=== PATIENT | female | born 1990 | race Hispanic/Latino ===

== ENCOUNTER 2017-07-06 19:48 | Emergency (ER) | payer MEDICAID ==
--- NOTE | 2017-07-06 22:30 | Emergency Department Report ---
ED Recheck HPI - General Chief Complaint: Medical Clearance Stated Complaint: MEDICATION REFILL Time Seen by Provider: 07/06/17 22:04 Source: patient Mode of arrival: Ambulatory Limitations: No Limitations - History of Present Illness Initial Comments: This 26-year-old female nontoxic, well nourished in appearance, no acute signs of distress presents to the ED for refill of Celexa. Patient stated she currently has anxiety and depression and has not been taking her medications for the past 2 days. Patient denies any suicidal medication medication. Patient states she is asymptomatic and just wants medication refill. Patient states she takes Celexa 40 mg daily. He denies having a primary care doctor or psychiatrist or psychologist due to insurance purposes but stated at the end of next month she should get her insurance. Patient denies any chest pain, shortness of breath, fever, chills, nausea, vomiting, headache or stiff neck. Patient states allergies sulfa denies past medical history besides anxiety and depression. MD Complaint: medication refill request Returns Today for: request for prescription Symptoms Since Prior Visit: no new symptoms Associated Symptoms: none. denies: fever, chills, chest pain, shortness of breath, rash, malaise, nasuea, abdominal pain - Related Data Previous Rx's Medication Instructions Recorded Last Taken Type Citalopram [Celexa] 20 mg PO QDAY #10 tablet 09/18/15 04/26/16 21:00 Rx Amoxicillin [Trimox CAP] 500 mg PO Q8H #30 capsule 10/17/15 04/06/16 22:00 Rx Ibuprofen [Motrin 800 MG tab] 800 mg PO TID PRN #30 tablet 04/28/16 Unknown Rx Lidocain2.5%/Prilocai2.5% [Emla] 5 gm TP PRN #1 tube 04/28/16 Unknown Rx Citalopram Hydrobromide [Celexa] 40 mg PO DAILY #30 tablet 07/06/17 Unknown Rx Allergies Allergy/AdvReac Type Severity Reaction Status Date / Time Sulfa (Sulfonamide Allergy Intermediate Swelling Verified 10/17/15 11:36 Antibiotics) ED Review of Systems ROS: Stated complaint: MEDICATION REFILL Other details as noted in HPI Constitutional: denies: chills, fever Eyes: denies: eye pain, eye discharge, vision change ENT: denies: ear pain, throat pain Respiratory: denies: cough, shortness of breath, wheezing Cardiovascular: denies: chest pain, palpitations Endocrine: no symptoms reported Gastrointestinal: denies: abdominal pain, nausea, diarrhea Genitourinary: denies: urgency, dysuria, discharge Musculoskeletal: denies: back pain, joint swelling, arthralgia Skin: denies: rash, lesions Neurological: denies: headache, weakness, paresthesias Psychiatric: denies: anxiety, depression Hematological/Lymphatic: denies: easy bleeding, easy bruising ED Past Medical Hx - Past Medical History Hx Hypertension: Yes (PIH WITH 1ST ) Hx Congestive Heart Failure: No Hx Diabetes: No Hx Deep Vein Thrombosis: No Hx Renal Disease: No Hx Sickle Cell Disease: No Hx Seizures: No Hx Psychiatric Treatment: Yes (anxiety, depression) Hx Asthma: No Hx COPD: No Hx HIV: No - Surgical History Additional Surgical History: Gallbladder - Social History Smoking Status: Current Some Day Smoker Substance Use Type: None - Medications Home Medications: Home Medications Medication Instructions Recorded Confirmed Last Taken Type Citalopram [Celexa] 20 mg PO QDAY #10 tablet 09/18/15 04/27/16 04/26/16 21:00 Rx Amoxicillin [Trimox CAP] 500 mg PO Q8H #30 capsule 10/17/15 04/27/16 04/06/16 22 :00 Rx Ibuprofen [Motrin 800 MG tab] 800 mg PO TID PRN #30 tablet 04/28/16 Unknown Rx Lidocain2.5%/Prilocai2.5% [Emla] 5 gm TP PRN #1 tube 04/28/16 Unknown Rx Citalopram Hydrobromide [Celexa] 40 mg PO DAILY #30 tablet 07/06/17 Unknown Rx ED Physical Exam - General Limitations: No Limitations General appearance: alert, in no apparent distress - Head Head exam: Present: atraumatic, normocephalic - Eye Eye exam: Present: normal appearance - ENT ENT exam: Present: mucous membranes moist - Neck Neck exam: Present: normal inspection - Respiratory Respiratory exam: Present: normal lung sounds bilaterally. Absent: respiratory distress - Cardiovascular Cardiovascular Exam: Present: regular rate, normal rhythm. Absent: systolic murmur, diastolic murmur, rubs, gallop - GI/Abdominal GI/Abdominal exam: Present: soft, normal bowel sounds - Extremities Exam Extremities exam: Present: normal inspection - Back Exam Back exam: Present: normal inspection - Neurological Exam Neurological exam: Present: alert, oriented X3 - Psychiatric Psychiatric exam: Present: normal affect, normal mood - Skin Skin exam: Present: warm, dry, intact, normal color. Absent: rash ED Course Vital Signs 07/06/17 20:23 Temperature 99.0 F Pulse Rate 97 H Respiratory 18 Rate Blood Pressure 130/83 O2 Sat by Pulse 100 Oximetry - Reevaluation(s) Reevaluation #1: 07/06/17 22:28 Patient is speaking in full sentences with no signs of distress noted. Critical care attestation.: If time is entered above; I have spent that time in minutes in the direct care of this critically ill patient, excluding procedure time. ED Disposition Clinical Impression: Medication refill Disposition: DC-01 TO HOME OR SELFCARE Is pt being admited?: No Does the pt Need Aspirin: No Condition: Stable Instructions: Citalopram (By mouth) Additional Instructions: Follow-up with a primary care doctor in 3-5 days or if symptoms worsen and continue return to emergency room as soon as possible. Prescriptions: Citalopram Hydrobromide [Celexa] 40 mg PO DAILY #30 tablet Referrals: PRIMARY CAREMD [Primary Care Provider] - 3-5 Days ELIZABETH MACARIO MD [Staff Physician] - 3-5 Days [facility] [Outside] - 3-5 Days [facility] [place] [Outside] - 3-5 Days Forms: Work/School Release Form(ED)
[2017-07-06 22:57] VITALS: BP 132/85
== END 2017-07-06 22:57 | disposition home or self-care (01) ==
LOC: ED 19:48
DX: F41.9 Anxiety disorder, unspecified (principal); F32.9 Major depressive disorder, single episode, unspecified; I10 Essential (primary) hypertension; F17.200 Nicotine dependence, unspecified, uncomplicated
CPT/HCPCS: 99282

== ENCOUNTER 2017-08-28 20:47 | Emergency (ER) | payer MEDICAID ==
[2017-08-28 20:57] VITALS: BP 137/87
== END 2017-08-28 23:20 | disposition left against medical advice (07) ==
LOC: ED 20:47
DX: Z53.21 Procedure and treatment not carried out due to patient leaving prior to being seen by health care provider (principal)

== ENCOUNTER 2019-10-30 13:58 | Emergency (ER) | payer SELFPAY ==
[2019-10-30 14:56] VITALS: BP 136/79
--- NOTE | 2019-10-30 14:57 | Emergency Department Report ---
ED Recheck HPI - General Chief Complaint: High BP Stated Complaint: REFILLS ON RX Time Seen by Provider: 10/30/19 14:56 Source: patient Mode of arrival: Ambulatory Limitations: No Limitations - History of Present Illness Initial Comments: This is a 29-year-old female nontoxic, well in appearance with no signs of distress presents to the ED for medication refill of HTN. Due to COVID-19 patients MD is closed. Patient stated she is asymptotic. Patient denies any urinary symptoms. Patient denies any fever, chills, headache, nausea, vomiting, chest pain or shortness of breathe. denies any other symptoms or complaints. Allergies to Sulfa. MD Complaint: medication refill request -: days(s) Returns Today for: request for prescription Symptoms Since Prior Visit: no new symptoms Associated Symptoms: none. denies: fever, chills, chest pain, shortness of breath, rash, malaise, nasuea, abdominal pain - Related Data Previous Rx's Medication Instructions Recorded Last Taken Type Citalopram [Celexa] 20 mg PO QDAY #10 tablet 09/18/15 04/26/16 21:00 Rx Amoxicillin [Trimox CAP] 500 mg PO Q8H #30 capsule 10/17/15 04/06/16 22:00 Rx Ibuprofen [Motrin 800 MG tab] 800 mg PO TID PRN #30 tablet 04/28/16 Unknown Rx Lidocain2.5%/Prilocai2.5% [Emla] 5 gm TP PRN #1 tube 04/28/16 Unknown Rx Citalopram Hydrobromide [Celexa] 40 mg PO DAILY #30 tablet 07/06/17 Unknown Rx AtorvaSTATin [Lipitor] 20 mg PO QHS #30 tab 10/30/19 Unknown Rx hydroCHLOROthiazide [HCTZ] 25 mg PO QDAY #30 tablet 10/30/19 Unknown Rx Allergies Allergy/AdvReac Type Severity Reaction Status Date / Time Sulfa (Sulfonamide Allergy Intermediate Swelling Verified 10/17/15 11:36 Antibiotics) ED Review of Systems ROS: Stated complaint: REFILLS ON RX Other details as noted in HPI Constitutional: denies: chills, fever Eyes: denies: eye pain, eye discharge, vision change ENT: denies: ear pain, throat pain Respiratory: denies: cough, shortness of breath, wheezing Cardiovascular: denies: chest pain, palpitations Endocrine: no symptoms reported Gastrointestinal: denies: abdominal pain, nausea, diarrhea Genitourinary: denies: urgency, dysuria, discharge Musculoskeletal: denies: back pain, joint swelling, arthralgia Skin: denies: rash, lesions Neurological: denies: headache, weakness, paresthesias Psychiatric: denies: anxiety, depression Hematological/Lymphatic: denies: easy bleeding, easy bruising ED Past Medical Hx - Past Medical History Hx Hypertension: Yes (PIH WITH 1ST ) Hx Congestive Heart Failure: No Hx Diabetes: No Hx Deep Vein Thrombosis: No Hx Renal Disease: No Hx Sickle Cell Disease: No Hx Seizures: No Hx Psychiatric Treatment: Yes (anxiety, depression) Hx Asthma: No Hx COPD: No Hx HIV: No - Surgical History Additional Surgical History: Gallbladder - Social History Smoking Status: Never Smoker Substance Use Type: None - Medications Home Medications: Home Medications Medication Instructions Recorded Confirmed Last Taken Type Citalopram [Celexa] 20 mg PO QDAY #10 tablet 09/18/15 04/27/16 04/26/16 21:00 Rx Amoxicillin [Trimox CAP] 500 mg PO Q8H #30 capsule 10/17/15 04/27/16 04/06/16 22:00 Rx Ibuprofen [Motrin 800 MG tab] 800 mg PO TID PRN #30 tablet 04/28/16 Unknown Rx Lidocain2.5%/Prilocai2.5% [Emla] 5 gm TP PRN #1 tube 04/28/16 Unknown Rx Citalopram Hydrobromide [Celexa] 40 mg PO DAILY #30 tablet 07/06/17 Unknown Rx AtorvaSTATin [Lipitor] 20 mg PO QHS #30 tab 10/30/19 Unknown Rx hydroCHLOROthiazide [HCTZ] 25 mg PO QDAY #30 tablet 10/30/19 Unknown Rx ED Physical Exam - General Limitations: No Limitations General appearance: alert, in no apparent distress - Head Head exam: Present: atraumatic, normocephalic - Eye Eye exam: Present: normal appearance - Neck Neck exam: Present: normal inspection, full ROM. Absent: tenderness, meningismus, lymphadenopathy - Respiratory Respiratory exam: Present: normal lung sounds bilaterally. Absent: respiratory distress, wheezes, rales, rhonchi, stridor, chest wall tenderness, accessory muscle use, decreased breath sounds, prolonged expiratory - Cardiovascular Cardiovascular Exam: Present: regular rate, normal rhythm, normal heart sounds. Absent: bradycardia, tachycardia, irregular rhythm - Extremities Exam Extremities exam: Present: normal inspection, full ROM - Back Exam Back exam: Present: normal inspection, full ROM - Neurological Exam Neurological exam: Present: alert, oriented X3, normal gait - Psychiatric Psychiatric exam: Present: normal affect, normal mood - Skin Skin exam: Present: warm, dry, intact, normal color. Absent: rash ED Course Vital Signs 10/30/19 14:54 Temperature 98.3 F Pulse Rate 82 Respiratory 18 Rate Blood Pressure 136/79 O2 Sat by Pulse 100 Oximetry - Reevaluation(s) Reevaluation #1: 10/30/19 14:59 Patient is speaking in full sentences with no signs of distress noted. ED Recheck MDM - Medical Decision Making Patient was instructed to Follow-up with a primary care doctor in 3-5 days or if symptoms worsen and continue return to emergency room as soon as possible. At time of discharge, the patient does not seem toxic or ill in appearance. No acute signs of distress noted. Patient agrees to discharge treatment plan of care. No further questions noted by the patient. Critical care attestation.: If time is entered above; I have spent that time in minutes in the direct care of this critically ill patient, excluding procedure time. ED Disposition Clinical Impression: Medication refill Disposition: MED SCREENING EXAM-LEFT Is pt being admited?: No Does the pt Need Aspirin: No Condition: Stable Additional Instructions: Follow-up with a primary care doctor in 3-5 days or if symptoms worsen and continue return to emergency room as soon as possible. Prescriptions: AtorvaSTATin [Lipitor] 20 mg PO QHS #30 tab hydroCHLOROthiazide [HCTZ] 25 mg PO QDAY #30 tablet Referrals: PRIMARY CAREMD [Referring] - 3-5 Days ABA JOHNSON MD [Staff Physician] - 3-5 Days [facility] [Provider Group] - 3-5 Days Forms: Work/School Release Form(ED)
== END 2019-10-30 15:25 | disposition left against medical advice (07) ==
LOC: ED 13:58
DX: I10 Essential (primary) hypertension (principal); F32.9 Major depressive disorder, single episode, unspecified; Z76.0 Encounter for issue of repeat prescription; Z98.890 Other specified postprocedural states; Z79.899 Other long term (current) drug therapy; Z88.2 Allergy status to sulfonamides
CPT/HCPCS: 99281

== ENCOUNTER 2020-06-18 19:21 | Emergency (ER) | payer SELFPAY ==
[2020-06-18 20:17] VITALS: BP 118/78
--- NOTE | 2020-06-18 20:55 | XRay Report ---
LEFT HAND 3 VIEWS INDICATION / CLINICAL INFORMATION: Left thumb swelling and pain. COMPARISON: None available. FINDINGS: There is a mildly displaced intra-articular fracture of the dorsal base of the thumb distal phalanx. There is no other acute fracture. Remaining alignment is normal. Signer Name: Daniel Brooks MD Signed: 06/18/2020 8:51 PM Workstation Name: [id number]
[2020-06-18] MEDS ORDERED: HYDROcodone/ACETAMINOPHEN 5-325 MG TAB PO ONE (23:47)
--- NOTE | 2020-06-19 00:28 | Emergency Department Report ---
Upper Extremity - HPI Chief Complaint: Extremity Injury, Upper Stated Complaint: LEFT HAND PAIN Time Seen by Provider: 06/18/20 23:43 Upper Extremity: Left Thumb (Left dorsal distal thumb swelling ) Occurred When: 2 Days Mechanism: Crush Severity: moderate Symptoms: Yes Pain with Movement, Yes Swelling, Yes Bruising/Ecchymosis, No Deformity, No Limited Range of Movement, No Numbness, No Weakness, No Laceration or Abrasion Other History: Patient states she slammed her left distal thigh in car door yesterday, and noted pain and swelling this a.m. when she woke up. Pain progressed through the day while at work so she came to ED for abdominal evaluation. Patient complains of 5/10 distal thumb pain, pain is exacerbated by movement and palpation. Pain is relieved by nothing tried. ED Review of Systems ROS: Stated complaint: LEFT HAND PAIN Other details as noted in HPI Constitutional: denies: chills, fever Eyes: denies: eye pain, eye discharge, vision change ENT: denies: ear pain, throat pain Respiratory: denies: cough, shortness of breath, wheezing Cardiovascular: as per HPI Endocrine: no symptoms reported Gastrointestinal: denies: abdominal pain, nausea, diarrhea Genitourinary: denies: urgency, dysuria, discharge Musculoskeletal: denies: back pain, arthralgia Skin: denies: rash, lesions Neurological: denies: headache, weakness, paresthesias Psychiatric: denies: anxiety, depression Hematological/Lymphatic: denies: easy bleeding, easy bruising ED Past Medical Hx - Past Medical History Previous Medical History?: Yes Hx Hypertension: Yes (PIH WITH 1ST ) Hx Congestive Heart Failure: No Hx Diabetes: No Hx Deep Vein Thrombosis: No Hx Renal Disease: No Hx Sickle Cell Disease: No Hx Seizures: No Hx Psychiatric Treatment: Yes (anxiety, depression) Hx Asthma: No Hx COPD: No Hx HIV: No Additional medical history: high cholesterol - Surgical History Past Surgical History?: Yes Hx Cholecystectomy: Yes Additional Surgical History: Gallbladder - Social History Smoking Status: Never Smoker Substance Use Type: None - Medications Home Medications: Home Medications Medication Instructions Recorded Confirmed Last Taken Type Citalopram [Celexa] 20 mg PO QDAY #10 tablet 09/18/15 04/27/16 04/26/16 21:00 Rx Amoxicillin [Trimox CAP] 500 mg PO Q8H #30 capsule 10/17/15 04/27/16 04/06/16 22:00 Rx Ibuprofen [Motrin 800 MG tab] 800 mg PO TID PRN #30 tablet 04/28/16 Unknown Rx Lidocain2.5%/Prilocai2.5% [Emla] 5 gm TP PRN #1 tube 04/28/16 Unknown Rx Citalopram Hydrobromide [Celexa] 40 mg PO DAILY #30 tablet 07/06/17 Unknown Rx AtorvaSTATin [Lipitor] 20 mg PO QHS #30 tab 12/07/19 Unknown Rx Dicyclomine [Bentyl] 20 mg PO Q6H PRN #30 tablet 12/07/19 Unknown Rx Famotidine [Pepcid] 20 mg PO Q12H #60 tablet 12/07/19 Unknown Rx Omeprazole 40 mg PO DAILY #30 capsule.dr 12/07/19 Unknown Rx hydroCHLOROthiazide [HCTZ] 25 mg PO QDAY #30 tablet 12/07/19 Unknown Rx Ibuprofen [Motrin] 800 mg PO Q8HR PRN #24 tablet 02/08/20 Unknown Rx cephALEXin [Keflex] 500 mg PO Q8HR #30 cap 02/08/20 Unknown Rx HYDROcodone/APAP 5-325 [[place] 1 each PO Q6HR PRN #12 tablet 06/19/20 Unknown Rx 5-325 mg TAB] Upper Extremity Exam - Exam General: Vital signs noted. No distress. Alert and acting appropriately. Head and Torso: No HEENT Abnormality, No Neck Tenderness, No Chest/Lungs Abnormality, No Abdominal Tenderness, No Back Tenderness Shoulder Exam: Yes Normal Range of Motion in Shoulder, No Shoulder Tenderness, No Clavicle Tenderness, No Shoulder Deformity, No AC Joint Tenderness Arm Exam: No Arm/Humerus Tenderness, No Arm Deformity Elbow: Yes Normal Range of Motion in Elbow, No Elbow Tenderness, No Elbow Deformity Forearm: No Forearm Tenderness, No Forearm Deformity, No Pain with Pronation, No Pain with Supination Wrist: Yes Normal ROM in Wrist, Yes Pain with Axial Thumb Compression (distal phalynx pain ), No Wrist Tenderness, No Wrist Deformity, No Snuffbox Tenderness Hand: Yes Hand Tenderness, Yes Normal ROM in Digit(s), No Hand Deformity, No Digit Tenderness, No Digit(s) Deformity, No Tendon Dysfunction CMS Exam: Yes Normal Distal Pulses, Yes Normal Capillary Refill, Yes Normal Distal Sensation, No Broken Skin ED Course Vital Signs 06/18/20 20:15 Temperature 98.3 F Pulse Rate 69 Respiratory 18 Rate Blood Pressure 118/78 O2 Sat by Pulse 98 Oximetry - Reevaluation(s) Reevaluation #1: distal pulse +2 bilat , there is no open wound, no deformity , rom intact, distal phalynx tenderness and mild swelling , no gross deformly, velcro thumb spica is that. 06/19/20 00:28 ED Medical Decision Making - Radiology Data Radiology results: report reviewed, image reviewed This is a closed distal phalanx fracture left - Medical Decision Making This is a closed distal phalanx fracture left, Velcro thumb spica intact spacing is appropriate. Plan patient will be DC'd home to family with prescriptions. Patient will follow-up with Ortho in 2 to 3 days. Patient verbalizes agreement and understanding of discharge plan patient DC'd home in stable condition at this time Critical care attestation.: If time is entered above; I have spent that time in minutes in the direct care of this critically ill patient, excluding procedure time. ED Disposition Clinical Impression: Fracture of distal phalanx of thumb Qualifiers: Encounter type: initial encounter Fracture type: open Fracture alignment: nondisplaced Laterality: left Qualified Code(s): S62.525B - Nondisplaced fracture of distal phalanx of left thumb, initial encounter for open fracture Disposition: DC-01 TO HOME OR SELFCARE Is pt being admited?: No Does the pt Need Aspirin: No Condition: Stable Instructions: Cast or Splint Care, Adult, [id number], Thumb Fracture Prescriptions: HYDROcodone/APAP 5-325 [[place] 5-325 mg TAB] 1 each PO Q6HR PRN #12 tablet PRN Reason: Pain Referrals: CHRISTINA PADILLA MD [Staff Physician] - 3-5 Days Forms: Work/School Release Form(ED) Time of Disposition: 00:42
== END 2020-06-19 00:50 | disposition home or self-care (01) ==
LOC: ED 19:21
DX: S62.525B Nondisplaced fracture of distal phalanx of left thumb, initial encounter for open fracture (principal); I10 Essential (primary) hypertension; F41.9 Anxiety disorder, unspecified; F32.89 Other specified depressive episodes; E78.00 Pure hypercholesterolemia, unspecified; X58.XXXA Exposure to other specified factors, initial encounter; Y93.89 Activity, other specified; Y92.89 Other specified places as the place of occurrence of the external cause; Y99.8 Other external cause status

== ENCOUNTER 2020-09-02 00:14 | Emergency (ER) | payer SELFPAY ==
[2020-09-02 01:57] LABS: Basophils # (Auto) 0.1 K/mm3 (0.0-0.1); Basophils % (Auto) 0.6 % (0.0-1.8); Eosinophils # (Auto) 0.2 K/mm3 (0.0-0.4); Eosinophils % (Auto) 1.7 % (0.0-4.3); Hematocrit 40.3 % (30.3-42.9); Hemoglobin 13.3 gm/dl (10.1-14.3); Lymphocytes # (Auto) 1.8 K/mm3 (1.2-5.4); Lymphocytes % (Auto) 16.1 % (13.4-35.0); Mean Corpuscular HGB Conc 33 % (30-34); Mean Corpuscular Volume 95 fl (79-97); Monocytes # (Auto) 0.9 K/mm3 (0.0-0.8); Monocytes % (Auto) 7.8 % (0.0-7.3); Platelet Count 263 K/mm3 (140-440); Red Blood Count 4.25 M/mm3 (3.65-5.03); Red Cell Distribution Width 12.9 % (13.2-15.2)
[2020-09-02 02:17] LABS: Alanine Aminotransferase 18 units/L (7-56); Albumin 3.7 g/dL (3.9-5); Blood Urea Nitrogen 9 mg/dL (7-17); Calcium 9.1 mg/dL (8.4-10.2); Hemolysis Index 7
[2020-09-02 02:25] LABS: BUN/Creatinine Ratio 13
--- NOTE | 2020-09-02 04:11 | XRay Report ---
CHEST 1 VIEW 09/02/2020 2:57 AM INDICATION / CLINICAL INFORMATION: SOB. COMPARISON: None available. FINDINGS: SUPPORT DEVICES: None. HEART / MEDIASTINUM: No significant abnormality. LUNGS / PLEURA: No significant pulmonary or pleural abnormality. No pneumothorax. ADDITIONAL FINDINGS: No significant additional findings. IMPRESSION: 1. No acute findings. Signer Name: Devin Andrade MD Signed: 09/02/2020 4:06 AM Workstation Name: [id number]
[2020-09-02 04:54] LABS: Bacteria,Urine 1+ /HPF (Negative); Bilirubin,Urine NEG (Negative); Blood,Urine NEG (Negative); Color,Urine Yellow (Yellow); Mucus,Urine FEW /HPF; Protein,Urine <15 mg/dL mg/dL (Negative); Urobilinogen,Urine < 2.0 mg/dL (<2.0)
--- NOTE | 2020-09-02 05:24 | Emergency Department Report ---
ED Chest Pain HPI - General Chief Complaint: Chest Pain Stated Complaint: CHEST PAIN,VALDEMAR,SWELLING Time Seen by Provider: 09/02/20 03:19 Source: patient Mode of arrival: Ambulatory Limitations: No Limitations - History of Present Illness Initial Comments: This is a 30-year-old female presents to the emergency department with complaint of feeling like she is swollen from the abdomen up through her head, and the patient says that she has some chest tightness/pressure over the past few days. She denies any fever, back pain, abdominal pain, lower extremity swelling, headache, vision change. The patient is about 7 weeks and with this she is G5, P4. She has a past medical history of hypertension for which she was previously on lisinopril and HCTZ. She just followed up with her INTERVENTIONAL SALE CONSULTANT at [facility] and was switched off of those blood pressure medications and onto labetalol 100 mg twice daily. She says that she has the previously mentioned symptoms since making the change in the blood pressure medications. On top of the hypertension, the patient also has a history of high cholesterol. She denies any tobacco or illicit drug use. There is no family history of early heart attack within her nuclear family. No recent travel or sick contacts at home. No known exposure to anyone with COVID-19. She has not taken anything for her symptoms prior to presentation today. - Related Data Previous Rx's Medication Instructions Recorded Last Taken Type Citalopram [Celexa] 20 mg PO QDAY #10 tablet 09/18/15 04/26/16 21:00 Rx Amoxicillin [Trimox CAP] 500 mg PO Q8H #30 capsule 10/17/15 04/06/16 22:00 Rx Ibuprofen [Motrin 800 MG tab] 800 mg PO TID PRN #30 tablet 04/28/16 Unknown Rx Lidocain2.5%/Prilocai2.5% [Emla] 5 gm TP PRN #1 tube 04/28/16 Unknown Rx Citalopram Hydrobromide [Celexa] 40 mg PO DAILY #30 tablet 07/06/17 Unknown Rx AtorvaSTATin [Lipitor] 20 mg PO QHS #30 tab 12/07/19 Unknown Rx Dicyclomine [Bentyl] 20 mg PO Q6H PRN #30 tablet 12/07/19 Unknown Rx Famotidine [Pepcid] 20 mg PO Q12H #60 tablet 12/07/19 Unknown Rx Omeprazole 40 mg PO DAILY #30 capsule. 12/07/19 Unknown Rx hydroCHLOROthiazide [HCTZ] 25 mg PO QDAY #30 tablet 12/07/19 Unknown Rx Ibuprofen [Motrin] 800 mg PO Q8HR PRN #24 tablet 02/08/20 Unknown Rx cephALEXin [Keflex] 500 mg PO Q8HR #30 cap 02/08/20 Unknown Rx HYDROcodone/APAP 5-325 [[place] 1 each PO Q6HR PRN #12 tablet 06/19/20 Unknown Rx 5-325 mg TAB] Allergies Allergy/AdvReac Type Severity Reaction Status Date / Time Sulfa (Sulfonamide Allergy Intermediate Swelling Verified 10/17/15 11:36 Antibiotics) Heart Score - HEART Score History: Slightly suspicious EKG: Normal Age: < 45 Risk factors: 1-2 risk factors Troponin: < normal limit HEART Score: 1 - Critical Actions Critical Actions: 0-3 pts:0.9-1.7%risk of adverse cardiac event.Candidate for discharge ED Review of Systems ROS: Stated complaint: CHEST PAIN,VALDEMAR,SWELLING Other details as noted in HPI Comment: All other systems reviewed and negative Constitutional: denies: chills, fever Eyes: denies: eye pain, vision change ENT: denies: ear pain, throat pain Respiratory: denies: cough, wheezing Cardiovascular: chest pain, edema Gastrointestinal: denies: abdominal pain, vomiting Genitourinary: denies: dysuria, discharge Musculoskeletal: denies: back pain, arthralgia Skin: denies: rash, lesions Neurological: denies: headache, weakness ED Past Medical Hx - Past Medical History Hx Hypertension: Yes (PIH WITH 1ST ) Hx Congestive Heart Failure: No Hx Diabetes: No Hx Deep Vein Thrombosis: No Hx Renal Disease: No Hx Sickle Cell Disease: No Hx Seizures: No Hx Psychiatric Treatment: Yes (anxiety, depression) Hx Asthma: No Hx COPD: No Hx HIV: No Additional medical history: high cholesterol - Surgical History Past Surgical History?: Yes Hx Cholecystectomy: Yes Additional Surgical History: Gallbladder - Social History Smoking Status: Never Smoker Substance Use Type: None - Medications Home Medications: Home Medications Medication Instructions Recorded Confirmed Last Taken Type Citalopram [Celexa] 20 mg PO QDAY #10 tablet 09/18/15 04/27/16 04/26/16 21:00 Rx Amoxicillin [Trimox CAP] 500 mg PO Q8H #30 capsule 10/17/15 04/27/16 04/06/16 22:00 Rx Ibuprofen [Motrin 800 MG tab] 800 mg PO TID PRN #30 tablet 04/28/16 Unknown Rx Lidocain2.5%/Prilocai2.5% [Emla] 5 gm TP PRN #1 tube 04/28/16 Unknown Rx Citalopram Hydrobromide [Celexa] 40 mg PO DAILY #30 tablet 07/06/17 Unknown Rx AtorvaSTATin [Lipitor] 20 mg PO QHS #30 tab 12/07/19 Unknown Rx Dicyclomine [Bentyl] 20 mg PO Q6H PRN #30 tablet 12/07/19 Unknown Rx Famotidine [Pepcid] 20 mg PO Q12H #60 tablet 12/07/19 Unknown Rx Omeprazole 40 mg PO DAILY #30 capsule. 12/07/19 Unknown Rx hydroCHLOROthiazide [HCTZ] 25 mg PO QDAY #30 tablet 12/07/19 Unknown Rx Ibuprofen [Motrin] 800 mg PO Q8HR PRN #24 tablet 02/08/20 Unknown Rx cephALEXin [Keflex] 500 mg PO Q8HR #30 cap 02/08/20 Unknown Rx HYDROcodone/APAP 5-325 [[place] 1 each PO Q6HR PRN #12 tablet 06/19/20 Unknown Rx 5-325 mg TAB] ED Physical Exam - General Limitations: No Limitations - Other Other exam information: GENERAL: The patient is well-developed well-nourished. HENT: Normocephalic. Atraumatic. Patient has moist mucous membranes. EYES: Extraocular motions are intact. NECK: Supple. Trachea is midline. CHEST/LUNGS: Clear to auscultation. There is no respiratory distress noted. HEART/CARDIOVASCULAR: Regular. There is no tachycardia. There is no murmur. ABDOMEN: Abdomen is soft, nontender. Patient has normal bowel sounds. There is no abdominal distention. SKIN: Skin is warm and dry. No appreciable edema. NEURO: The patient is awake, alert, and oriented. The patient is cooperative. The patient has no focal neurologic deficits. Normal speech. MUSCULOSKELETAL: There is no tenderness or deformity. There is no limitation range of motion. ED Course Vital Signs 09/02/20 09/02/20 09/02/20 01:10 03:15 03:30 Temperature 97.6 F Pulse Rate 68 65 64 Respiratory 16 19 18 Rate Blood Pressure 134/77 116/72 119/62 O2 Sat by Pulse 100 99 99 Oximetry 09/02/20 09/02/20 09/02/20 03:45 04:00 04:15 Temperature Pulse Rate 59 L 61 65 Respiratory 20 12 19 Rate Blood Pressure 127/69 116/65 132/71 O2 Sat by Pulse 99 100 100 Oximetry 09/02/20 09/02/20 09/02/20 04:31 05:00 05:15 Temperature Pulse Rate 63 64 67 Respiratory 16 16 20 Rate Blood Pressure 126/69 127/79 121/70 O2 Sat by Pulse 99 100 100 Oximetry 09/02/20 05:30 Temperature Pulse Rate 68 Respiratory 14 Rate Blood Pressure 124/80 O2 Sat by Pulse 100 Oximetry SANJAY score - Sanjay Score Age > 65: (0) No Aspirin use within the Past 7 Days: (0) No 3 or more CAD Risk Factors: (0) No 2 or more Angina events in past 24 hrs: (1) Yes Known CAD with more than 50% Stenosis: (0) No Elevated Cardiac Markers: (0) No ST Deviation Greater than 0.5mm: (0) No SANJAY Score: 1 ED Medical Decision Making - Lab Data Result diagrams: 09/02/20 01:30 09/02/20 01:30 Lab Results 09/02/20 09/02/20 09/02/20 Range/Units 01:30 01:30 04:18 WBC 11.3 H (4.5-11.0) K/mm3 RBC 4.25 (3.65-5.03) M/mm3 Hgb 13.3 (10.1-14.3) gm/dl Hct 40.3 (30.3-42.9) % MCV 95 (79-97) fl MCH 31 (28-32) pg MCHC 33 (30-34) % RDW 12.9 L (13.2-15.2) % Plt Count 263 (140-440) K/mm3 Lymph % (Auto) 16.1 (13.4-35.0) % [place] % (Auto) 7.8 H (0.0-7.3) % Eos % (Auto) 1.7 (0.0-4.3) % Baso % (Auto) 0.6 (0.0-1.8) % Lymph # (Auto) 1.8 (1.2-5.4) K/mm3 [place] # (Auto) 0.9 H (0.0-0.8) K/mm3 Eos # (Auto) 0.2 (0.0-0.4) K/mm3 Baso # (Auto) 0.1 (0.0-0.1) K/mm3 Seg Neutrophils % 73.8 H (40.0-70.0) % Seg Neutrophils # 8.3 H (1.8-7.7) K/mm3 Sodium 136 L (137-145) mmol/L Potassium 4.0 (3.6-5.0) mmol/L Chloride 103.8 (98-107) mmol/L Carbon Dioxide 24 (22-30) mmol/L Anion Gap 12 mmol/L BUN 9 (7-17) mg/dL Creatinine 0.7 (0.6-1.2) mg/dL Estimated GFR > 60 ml/min BUN/Creatinine Ratio 13 % Glucose 98 (65-100) mg/dL Calcium 9.1 (8.4-10.2) mg/dL Total Bilirubin 0.20 (0.1-1.2) mg/dL AST 15 (5-40) units/L ALT 18 (7-56) units/L Alkaline Phosphatase 59 (35-129) units/L Troponin T < 0.010 (0.00-0.029) ng/mL Total Protein 6.5 (6.3-8.2) g/dL Albumin 3.7 L (3.9-5) g/dL Albumin/Globulin Ratio 1.3 % Urine Color (Yellow) Urine Turbidity (Clear) Urine pH (5.0-7.0) Ur Specific [place] (1.003-1.030) Urine Protein (Negative) mg/dL Urine Glucose (UA) (Negative) mg/dL Urine Ketones (Negative) mg/dL Urine Blood (Negative) Urine Nitrite (Negative) Urine Bilirubin (Negative) Urine Urobilinogen (<2.0) mg/dL Ur Leukocyte Esterase (Negative) Urine WBC (Auto) (0.0-6.0) /HPF Urine RBC (Auto) (0.0-6.0) /HPF U Epithel Cells (Auto) (0-13.0) /HPF Urine Bacteria (Auto) (Negative) /HPF Urine Mucus /HPF 09/02/20 Range/Units 04:35 WBC (4.5-11.0) K/mm3 RBC (3.65-5.03) M/mm3 Hgb (10.1-14.3) gm/dl Hct (30.3-42.9) % MCV (79-97) fl MCH (28-32) pg MCHC (30-34) % RDW (13.2-15.2) % Plt Count (140-440) K/mm3 Lymph % (Auto) (13.4-35.0) % [place] % (Auto) (0.0-7.3) % Eos % (Auto) (0.0-4.3) % Baso % (Auto) (0.0-1.8) % Lymph # (Auto) (1.2-5.4) K/mm3 [place] # (Auto) (0.0-0.8) K/mm3 Eos # (Auto) (0.0-0.4) K/mm3 Baso # (Auto) (0.0-0.1) K/mm3 Seg Neutrophils % (40.0-70.0) % Seg Neutrophils # (1.8-7.7) K/mm3 Sodium (137-145) mmol/L Potassium (3.6-5.0) mmol/L Chloride (98-107) mmol/L Carbon Dioxide (22-30) mmol/L Anion Gap mmol/L BUN (7-17) mg/dL Creatinine (0.6-1.2) mg/dL Estimated GFR ml/min BUN/Creatinine Ratio % Glucose (65-100) mg/dL Calcium (8.4-10.2) mg/dL Total Bilirubin (0.1-1.2) mg/dL AST (5-40) units/L ALT (7-56) units/L Alkaline Phosphatase (35-129) units/L Troponin T (0.00-0.029) ng/mL Total Protein (6.3-8.2) g/dL Albumin (3.9-5) g/dL Albumin/Globulin Ratio % Urine Color Yellow (Yellow) Urine Turbidity Clear (Clear) Urine pH 5.0 (5.0-7.0) Ur Specific [place] 1.026 (1.003-1.030) Urine Protein <15 mg/dl (Negative) mg/dL Urine Glucose (UA) Neg (Negative) mg/dL Urine Ketones Neg (Negative) mg/dL Urine Blood Neg (Negative) Urine Nitrite Neg (Negative) Urine Bilirubin Neg (Negative) Urine Urobilinogen < 2.0 (<2.0) mg/dL Ur Leukocyte Esterase Neg (Negative) Urine WBC (Auto) 1.0 (0.0-6.0) /HPF Urine RBC (Auto) 2.0 (0.0-6.0) /HPF U Epithel Cells (Auto) 4.0 (0-13.0) /HPF Urine Bacteria (Auto) 1+ (Negative) /HPF Urine Mucus Few /HPF - EKG Data -: EKG Interpreted by Me EKG shows normal: sinus rhythm, axis, intervals, QRS complexes, ST-T waves Rate: normal - EKG Data When compared to previous EKG there are: previous EKG unavailable - Radiology Data Radiology results: image reviewed interpreted by me: Chest x-ray does not show any acute process. There are no pleural effusions, obvious pneumonia and there is no pneumothorax. No significant cardiomegaly. - Medical Decision Making This patient presents to the emergency department with the complaints of feeling some chest tightness/pressure, some intermittent shortness of breath, and f eeling like she is swollen and/or retaining fluid. The patient says that this began after she switched blood pressure medications due to her recent . She went from taking lisinopril and HCTZ to taking labetalol. This could be accurate as the patient has switched from the HCTZ which has a diuretic effect, to a beta-arian. However, on examination the patient does not have any appreciable edema. Heart and lung sounds are normal to auscultation. An EKG was done that does not show any morphology consistent with ST elevation myocardial infarction or any dysrhythmia. A chest x-ray was done with her abdomen shielded. Chest x-ray does not show any pneumonia, pleural effusions, pneumothorax, or any other acute process. Patient's labs have been unremarkable including CBC, metabolic panel and a negative troponin. The patient's vital signs have been reassuring throughout her ED course including being afebrile. There is no current hypertension. The patient's labs do not appear consistent with preeclampsia or help syndrome. She has denied any abdominal pain, vaginal bleeding, or any reason to evaluate the and has good outpatient follow-up with [facility]SULT[facility]. She appears safe for discharge home at this time. Her contact information has been sent over to the [facility] and [facility] [place], and someone from their office should be contacting her shortly for close outpatient follow-up as per our [facility] low risk chest pain protocol. Critical Care Time: No Critical care attestation.: If time is entered above; I have spent that time in minutes in the direct care of this critically ill patient, excluding procedure time. ED Disposition Clinical Impression: Chest tightness, Shortness of breath Disposition: TO HOME OR SELFCARE Is pt being admited?: No Condition: Stable Instructions: Nonspecific Chest Pain, Adult, Shortness of Breath, Adult Additional Instructions: Please follow-up with your INTERVENTIONAL SALE CONSULTANT. I am sending your contact information over to the [facility] [place], and someone from their office should be contacting you shortly for close outpatient follow-up. Just in case, I am giving you a referral for one of their looseleaf binder coverer, Dr. Payne. Return to the emergency department with any worsening of your symptoms, new or concerning symptoms not addressed during this current emergency department visi t, or with any acute distress. Referrals: PRIMARY MD MEHREEN [Primary Care Provider] - 2-3 Days MARINA PAYNE MD [Staff Physician] - 2-3 Days [facility] [Provider Group] - 3-5 Days Forms: Work/School Release Form(ED) Time of Disposition: 05:24
[2020-09-02 05:34] VITALS: BP 124/80
== END 2020-09-02 05:45 | disposition home or self-care (01) ==
LOC: ED 00:14
DX: R07.89 Other chest pain (principal); R06.02 Shortness of breath; I10 Essential (primary) hypertension; F41.9 Anxiety disorder, unspecified; F32.9 Major depressive disorder, single episode, unspecified; E78.00 Pure hypercholesterolemia, unspecified; Z90.49 Acquired absence of other specified parts of digestive tract; Z79.899 Other long term (current) drug therapy; Z88.2 Allergy status to sulfonamides; Z98.890 Other specified postprocedural states
CPT/HCPCS: 36415; 71045; 80053; 81001; 84484; 85025; 93005

== ENCOUNTER 2020-11-09 18:42 | Emergency (ER) | payer SELFPAY ==
[2020-11-09 19:38] VITALS: BP 139/72
--- NOTE | 2020-11-09 19:48 | Event Note ---
ED Screening Note Date of service: 11/09/20 Time: 19:45 ED Screening Note: Pt presents wth c/o painful swollen area vaginal area She reports mild itching. She denies vag d/c; she states she thinks it may be a yeast infection She also thinks she may be 20 weeks . Her last MC was 07/01/20 She had an US with my OBGYN at 7 weeks but she states her medical insurance got terminated and she hasnt been able to f/u since She denies vag bleeding or abd cramping. She is AB0 This initial assessment/diagnostic orders/clinical plan/treatment(s) is/are subject to change based on patients health status, clinical progression and re- assessment by fellow clinical providers in the ED. Further treatment and workup at subsequent clinical providers discretion. Patient/guardian urged not to elope from the ED as their condition may be serious if not clinically assessed and managed. Initial orders include: Pelvic exam FHT UA
[2020-11-09 21:02] LABS: Bilirubin,Urine NEG (Negative); Blood,Urine NEG (Negative); Color,Urine Yellow (Yellow); Mucus,Urine 2+ /HPF
--- NOTE | 2020-11-09 22:28 | Emergency Department Report ---
ED Female HPI - General Chief complaint: Urogenital-Female Stated complaint: YEAST INFECTION Time Seen by Provider: 11/09/20 22:22 Source: patient Mode of arrival: Ambulatory Limitations: No Limitations - History of Present Illness Initial comments: Pt presents wth c/o painful swollen area vaginal area She reports mild itching. She denies vag d/c; she states she thinks it may be a yeast infection She also thinks she may be 20 weeks . Her LKMP was 07/01/20 She had an US with my OBGYN at 7 weeks but she states her medical insurance got terminated and she hasnt been able to f/u since She denies vag bleeding or abd cramping. She is AB0 Onset/Timin -: days(s) Location: labia Severity scale (0 -10): 4 Quality: other Consistency: constant (Irritation) Improves with: none Are you Now?: Yes Last Menstrual Period: 07/01/20 EDC: 04/07/21 - Related Data Previous Rx's Medication Instructions Recorded Last Taken Type Citalopram [Celexa] 20 mg PO QDAY #10 tablet 09/18/15 04/26/16 21:00 Rx Amoxicillin [Trimox CAP] 500 mg PO Q8H #30 capsule 10/17/15 04/06/16 22:00 Rx Ibuprofen [Motrin 800 MG tab] 800 mg PO TID PRN #30 tablet 04/28/16 Unknown Rx Lidocain2.5%/Prilocai2.5% [Emla] 5 gm TP PRN #1 tube 04/28/16 Unknown Rx Citalopram Hydrobromide [Celexa] 40 mg PO DAILY #30 tablet 07/06/17 Unknown Rx AtorvaSTATin [Lipitor] 20 mg PO QHS #30 tab 12/07/19 Unknown Rx Dicyclomine [Bentyl] 20 mg PO Q6H PRN #30 tablet 12/07/19 Unknown Rx Famotidine [Pepcid] 20 mg PO Q12H #60 tablet 12/07/19 Unknown Rx Omeprazole 40 mg PO DAILY #30 capsule. 12/07/19 Unknown Rx hydroCHLOROthiazide [HCTZ] 25 mg PO QDAY #30 tablet 12/07/19 Unknown Rx Ibuprofen [Motrin] 800 mg PO Q8HR PRN #24 tablet 02/08/20 Unknown Rx cephALEXin [Keflex] 500 mg PO Q8HR #30 cap 02/08/20 Unknown Rx HYDROcodone/APAP 5-325 [[place] 1 each PO Q6HR PRN #12 tablet 06/19/20 Unknown Rx 5-325 mg TAB] Nystatin Cream [Mycostatin Cream] 1 applic TP TID #1 tube 11/09/20 Unknown Rx Allergies Allergy/AdvReac Type Severity Reaction Status Date / Time Sulfa (Sulfonamide Allergy Intermediate Swelling Verified 10/17/15 11:36 Antibiotics) ED Review of Systems ROS: Stated complaint: YEAST INFECTION Other details as noted in HPI Comment: All other systems reviewed and negative ED Past Medical Hx - Past Medical History Previous Medical History?: Yes Hx Hypertension: Yes (PIH WITH 1ST ) Hx Congestive Heart Failure: No Hx Diabetes: No Hx Deep Vein Thrombosis: No Hx Renal Disease: No Hx Sickle Cell Disease: No Hx Seizures: No Hx Psychiatric Treatment: Yes (anxiety, depression) Hx Asthma: No Hx COPD: No Hx HIV: No Additional medical history: high cholesterol - Surgical History Past Surgical History?: Yes Hx Cholecystectomy: Yes Additional Surgical History: Gallbladder - Social History Smoking Status: Never Smoker - Medications Home Medications: Home Medications Medication Instructions Recorded Confirmed Last Taken Type Citalopram [Celexa] 20 mg PO QDAY #10 tablet 09/18/15 04/27/16 04/26/16 21:00 Rx Amoxicillin [Trimox CAP] 500 mg PO Q8H #30 capsule 10/17/15 04/27/16 04/06/16 22:00 Rx Ibuprofen [Motrin 800 MG tab] 800 mg PO TID PRN #30 tablet 04/28/16 Unknown Rx Lidocain2.5%/Prilocai2.5% [Emla] 5 gm TP PRN #1 tube 04/28/16 Unknown Rx Citalopram Hydrobromide [Celexa] 40 mg PO DAILY #30 tablet 07/06/17 Unknown Rx AtorvaSTATin [Lipitor] 20 mg PO QHS #30 tab 12/07/19 Unknown Rx Dicyclomine [Bentyl] 20 mg PO Q6H PRN #30 tablet 12/07/19 Unknown Rx Famotidine [Pepcid] 20 mg PO Q12H #60 tablet 12/07/19 Unknown Rx Omeprazole 40 mg PO DAILY #30 capsule. 12/07/19 Unknown Rx hydroCHLOROthiazide [HCTZ] 25 mg PO QDAY #30 tablet 12/07/19 Unknown Rx Ibuprofen [Motrin] 800 mg PO Q8HR PRN #24 tablet 02/08/20 Unknown Rx cephALEXin [Keflex] 500 mg PO Q8HR #30 cap 02/08/20 Unknown Rx HYDROcodone/APAP 5-325 [[place] 1 each PO Q6HR PRN #12 tablet 06/19/20 Unknown Rx 5-325 mg TAB] Nystatin Cream [Mycostatin Cream] 1 applic TP TID #1 tube 11/09/20 Unknown Rx ED Physical Exam - General Limitations: No Limitations General appearance: alert, in no apparent distress - Head Head exam: Present: atraumatic, normocephalic - Eye Eye exam: Present: normal appearance - ENT ENT exam: Present: mucous membranes moist - Neck Neck exam: Present: normal inspection, full ROM - Respiratory Respiratory exam: Absent: accessory muscle use - Cardiovascular Cardiovascular Exam: Present: regular rate - GI/Abdominal GI/Abdominal exam: Present: soft. Absent: distended, tenderness - External exam: Present: erythema, swelling. Absent: lesions, lacerations, bleeding - Extremities Exam Extremities exam: Present: normal inspection - Back Exam Back exam: Present: normal inspection - Neurological Exam Neurological exam: Present: alert, oriented X3, normal gait - Psychiatric Psychiatric exam: Present: normal affect, normal mood - Skin Skin exam: Present: warm, dry, intact, normal color. Absent: rash ED Course Vital Signs 11/09/20 19:37 Temperature 98.1 F Pulse Rate 85 Respiratory 16 Rate Blood Pressure 139/72 O2 Sat by Pulse 97 Oximetry - Procedure Description Procedures done: Bedside ultrasound performed by this provider to determine viability of . Heart rate 145. Fetus is moving. ED Medical Decision Making - Medical Decision Making Pt presents wth c/o painful swollen area vaginal area She reports mild itching. She denies vag d/c; she states she thinks it may be a yeast infection She also thinks she may be 20 weeks . Her LKMP was 07/01/20 She had an US with my OBGYN at 7 weeks but she states her medical insurance got terminated and she hasnt been able to f/u since She denies vag bleeding or abd cramping. She is AB0 Bedside ultrasound performed able to visualize movement of the fetus as well as a heart beat. Labia is irritated and mildly swelling. Will place patient on nystatin and to follow-up with a BUILDING ENGINEER. Critical care attestation.: If time is entered above; I have spent that time in minutes in the direct care of this critically ill patient, excluding procedure time. ED Disposition Clinical Impression: Candidiasis of female genitalia Vaginitis Qualifiers: Chronicity: acute Qualified Code(s): N76.0 - Acute vaginitis Disposition: TO HOME OR SELFCARE Is pt being admited?: No Does the pt Need Aspirin: No Condition: Stable Additional Instructions: Please use medication as prescribed. Follow-up with a BUILDING ENGINEER. Prescriptions: Nystatin Cream [Mycostatin Cream] 1 applic TP TID #1 tube Referrals: PRIMARY CARE, [Primary Care Provider] - 3-5 Days [facility] [Provider Group] - 3-5 Days
== END 2020-11-09 22:30 | disposition home or self-care (01) ==
LOC: ED 18:42
DX: B37.3 Candidiasis of vulva and vagina (principal); N76.0 Acute vaginitis; I10 Essential (primary) hypertension; F41.9 Anxiety disorder, unspecified; F32.9 Major depressive disorder, single episode, unspecified; Z79.899 Other long term (current) drug therapy; Z90.49 Acquired absence of other specified parts of digestive tract; Z88.2 Allergy status to sulfonamides
CPT/HCPCS: 36415; 81001; 84702; 87086; 99283

== ENCOUNTER 2020-11-17 02:42 | Emergency (ER) | payer SELFPAY ==
[2020-11-17 04:36] LABS: Bilirubin,Urine NEG (Negative); Blood,Urine NEG (Negative); Color,Urine Yellow (Yellow); Mucus,Urine 2+ /HPF; Urobilinogen,Urine < 2.0 mg/dL (<2.0)
[2020-11-17 05:33] LABS: Hematocrit 33.3 % (30.3-42.9); Hemoglobin 11.5 gm/dl (10.1-14.3); Mean Corpuscular HGB Conc 35 % (30-34); Mean Corpuscular Volume 96 fl (79-97); Platelet Count 250 K/mm3 (140-440); Red Blood Count 3.48 M/mm3 (3.65-5.03); Red Cell Distribution Width 12.9 % (13.2-15.2)
--- NOTE | 2020-11-17 05:38 | Emergency Department Report ---
ED Female HPI - General Chief complaint: Urogenital-Female Stated complaint: /UTI/YEAST INFECTION Time Seen by Provider: 11/17/20 05:33 Source: patient Mode of arrival: Ambulatory Limitations: No Limitations - History of Present Illness Initial comments: 30-year-old female who I had the pleasure of seeing last week for a yeast infection presents to the emergency room stating that she has completed the medication but still having swelling and irritation. Patient reports that she has increased urination dysuria. Patient is 18 weeks and has not been followed by any [facility]. Patient states that she is waiting on her Med icaid. 5 para to 4 last menstrual period 07/01/2020. Patient denies any abdominal pain. She does have a past medical history of hypertension and states that she takes her blood pressure medication at 3:00 in the morning. It was noted that patient's blood pressure in triage is 147/75. Patient denies any headache does complain of swelling in her hands and feet. MD Complaint: other Onset/Timin -: week(s) Location: labia Severity: mild Severity scale (0 -10): 6 - Related Data Previous Rx's Medication Instructions Recorded Last Taken Type Citalopram [Celexa] 20 mg PO QDAY #10 tablet 09/18/15 04/26/16 21:00 Rx Amoxicillin [Trimox CAP] 500 mg PO Q8H #30 capsule 10/17/15 04/06/16 22:00 Rx Ibuprofen [Motrin 800 MG tab] 800 mg PO TID PRN #30 tablet 04/28/16 Unknown Rx Lidocain2.5%/Prilocai2.5% [Emla] 5 gm TP PRN #1 tube 04/28/16 Unknown Rx Citalopram Hydrobromide [Celexa] 40 mg PO DAILY #30 tablet 07/06/17 Unknown Rx AtorvaSTATin [Lipitor] 20 mg PO QHS #30 tab 12/07/19 Unknown Rx Dicyclomine [Bentyl] 20 mg PO Q6H PRN #30 tablet 12/07/19 Unknown Rx Famotidine [Pepcid] 20 mg PO Q12H #60 tablet 12/07/19 Unknown Rx Omeprazole 40 mg PO DAILY #30 capsule. 12/07/19 Unknown Rx hydroCHLOROthiazide [HCTZ] 25 mg PO QDAY #30 tablet 12/07/19 Unknown Rx Ibuprofen [Motrin] 800 mg PO Q8HR PRN #24 tablet 02/08/20 Unknown Rx cephALEXin [Keflex] 500 mg PO Q8HR #30 cap 02/08/20 Unknown Rx HYDROcodone/APAP 5-325 [[place] 1 each PO Q6HR PRN #12 tablet 06/19/20 Unknown Rx 5-325 mg TAB] Nystatin Cream [Mycostatin Cream] 1 applic TP TID #1 tube 11/09/20 Unknown Rx Nitrofurantoin [place]/M-Cryst 100 mg PO Q12HR 10 Days #20 capsule 11/17/20 Unknown Rx [Macrobid CAP] Allergies Allergy/AdvReac Type Severity Reaction Status Date / Time Sulfa (Sulfonamide Allergy Intermediate Swelling Verified 10/17/15 11:36 Antibiotics) ED Review of Systems ROS: Stated complaint: /UTI/YEAST INFECTION Other details as noted in HPI Comment: All other systems reviewed and negative ED Past Medical Hx - Past Medical History Previous Medical History?: Yes Hx Hypertension: Yes Hx Congestive Heart Failure: No Hx Diabetes: No Hx Deep Vein Thrombosis: No Hx Renal Disease: No Hx Sickle Cell Disease: No Hx Seizures: No Hx Psychiatric Treatment: Yes (anxiety, depression) Hx Asthma: No Hx COPD: No Hx HIV: No Additional medical history: high cholesterol - Surgical History Past Surgical History?: Yes Hx Cholecystectomy: Yes Additional Surgical History: Gallbladder - Social History Smoking Status: Never Smoker Substance Use Type: None - Medications Home Medications: Home Medications Medication Instructions Recorded Confirmed Last Taken Type Citalopram [Celexa] 20 mg PO QDAY #10 tablet 09/18/15 04/27/16 04/26/16 21:00 Rx Amoxicillin [Trimox CAP] 500 mg PO Q8H #30 capsule 10/17/15 04/27/16 04/06/16 22:00 Rx Ibuprofen [Motrin 800 MG tab] 800 mg PO TID PRN #30 tablet 04/28/16 Unknown Rx Lidocain2.5%/Prilocai2.5% [Emla] 5 gm TP PRN #1 tube 04/28/16 Unknown Rx Citalopram Hydrobromide [Celexa] 40 mg PO DAILY #30 tablet 07/06/17 Unknown Rx AtorvaSTATin [Lipitor] 20 mg PO QHS #30 tab 12/07/19 Unknown Rx Dicyclomine [Bentyl] 20 mg PO Q6H PRN #30 tablet 12/07/19 Unknown Rx Famotidine [Pepcid] 20 mg PO Q12H #60 tablet 12/07/19 Unknown Rx Omeprazole 40 mg PO DAILY #30 capsule.dr 12/07/19 Unknown Rx hydroCHLOROthiazide [HCTZ] 25 mg PO QDAY #30 tablet 12/07/19 Unknown Rx Ibuprofen [Motrin] 800 mg PO Q8HR PRN #24 tablet 02/08/20 Unknown Rx cephALEXin [Keflex] 500 mg PO Q8HR #30 cap 02/08/20 Unknown Rx HYDROcodone/APAP 5-325 [[place] 1 each PO Q6HR PRN #12 tablet 06/19/20 Unknown Rx 5-325 mg TAB] Nystatin Cream [Mycostatin Cream] 1 applic TP TID #1 tube 11/09/20 Unknown Rx Nitrofurantoin [place]/M-Cryst 100 mg PO Q12HR 10 Days #20 capsule 11/17/20 Unknown Rx [Macrobid CAP] ED Physical Exam - General Limitations: No Limitations General appearance: alert, in no apparent distress - Head Head exam: Present: atraumatic, normocephalic - Eye Eye exam: Present: normal appearance - ENT ENT exam: Present: mucous membranes moist - Neck Neck exam: Present: normal inspection - Respiratory Respiratory exam: Present: normal lung sounds bilaterally. Absent: respiratory distress, accessory muscle use - Cardiovascular Cardiovascular Exam: Present: regular rate, normal rhythm. Absent: systolic murmur, diastolic murmur, rubs, gallop - GI/Abdominal GI/Abdominal exam: Present: soft. Absent: distended, tenderness - External exam: Present: normal external exam - Extremities Exam Extremities exam: Present: full ROM, pedal edema. Absent: tenderness - Back Exam Back exam: Present: normal inspection - Neurological Exam Neurological exam: Present: alert, oriented X3, normal gait - Psychiatric Psychiatric exam: Present: normal affect, normal mood - Skin Skin exam: Present: warm, dry, intact, normal color. Absent: rash ED Course Vital Signs 11/17/20 02:52 Temperature 98.0 F Pulse Rate 77 Respiratory 18 Rate Blood Pressure 147/75 O2 Sat by Pulse 98 Oximetry ED Medical Decision Making - Lab Data Result diagrams: 11/17/20 05:02 11/17/20 05:02 - Radiology Data Radiology results: report reviewed My Comment(s) Study Comments [facility], [place] [address] [place] [address] Ultrasound Report Signed Patient: SUMMER FLORES MR#: [id number] : 1990 Acct:[id number] Age/Sex: 30 / F ADM Date: 11/17/20 Loc: ED Attending Dr: Ordering Physician: NOEL AGARWAL Date of Service: 11/17/20 Procedure(s): US OB >= 14 weeks Fetus Accession Number(s): [id number] cc: NOEL AGARWAL OBSTETRIC ULTRASOUND INDICATION: Approximately 18 weeks with no c COMPARISON: No prior relevant imaging studies are available for comparison. TECHNIQUE: Transabdominal imaging was performed. FINDINGS: Single viable intrauterine is identified. lie: Transverse. Heart rate: 161 bpm. bladder, diaphragm, heart, stomach, cord and its insertion, kidneys, and included intracranial structures are unremarkable. Spine is not well visualized due to position. measurements are as follows: Biparietal diameter 4.5 cm, 19 weeks 4 days Head circumference 16.7 cm, 19 weeks 3 days Abdominal circumference 15.9 cm, 21 weeks 0 days Femur length 3.0 cm, 19 weeks 1 day Cervix is closed measuring 3-4 cm. There is a grade 0 anterior placenta. CONCLUSION: Single viable intrauterine currently in transverse position. No abnormalities are seen. Sonographic gestational age is 19 weeks, 6 days. Signer Name: Vik Cisneros MD Signed: 11/17/2020 6:57 AM Workstation Name: [id number] Transcribed By: SURESH Dictated By: Vik Cisneros MD Electronically Authenticated By: Vik Cisneros MD Signed Date/Time: 11/17/2057 DD/ 4 TD/TT: - Medical Decision Making 30-year-old female who I had the pleasure of seeing last week for a yeast infection presents to the emergency room stating that she has completed the medication but still having swelling and irritation. Patient reports that she has increased urination dysuria. Patient is 18 weeks and has not been followed by any [facility]. Patient states that she is waiting on her Medicaid. 5 para to 4 last menstrual period 07/01/2020. Patient denies any abdominal pain. She does have a past medical history of hypertension and states that she takes her blood pressure medication at 3:00 in the morning. It was noted that patient's blood pressure in triage is 147/75. Patient denies any headache does complain of swelling in her hands and feet. Patient has had no care. Urine has 30 of protein blood pressures elevated at 147/75. Ordered a CBC CMP and ultrasound. Critical care attestation.: If time is entered above; I have spent that time in minutes in the direct care of this critically ill patient, excluding procedure time. ED Disposition Clinical Impression: UTI (urinary tract infection) Qualifiers: Urinary tract infection type: acute cystitis Hematuria presence: without hematuria Qualified Code(s): N30.00 - Acute cystitis without hematuria Qualifiers: Weeks of gestation: 19 weeks Qualified Code(s): Z3A.19 - 19 weeks gestation of Disposition: - TO HOME OR SELFCARE Is pt being admited?: No Does the pt Need Aspirin: No Condition: Stable Instructions: and Urinary Tract Infection Additional Instructions: US shows that she 19 weeks and 6 days. Urine is positive for UTI. Complete antibiotics as prescribed. It is very important for you to start your care as we have spoke. Prescriptions: Nitrofurantoin [place]/M-Cryst [Macrobid CAP] 100 mg PO Q12HR 10 Days #20 capsule Referrals: [facility] [Primary Care Provider] - 3-5 Days [facility] [Provider Group] - 3-5 Days [facility] [Provider Group] - 3-5 Days [facility] [Provider Group] - 3-5 Days Forms: Work/School Release Form(ED)
[2020-11-17 05:40] LABS: Lymphocytes % (Auto) 12.3 % (13.4-35.0)
[2020-11-17 05:41] LABS: Eosinophils % (Auto) 1.7 % (0.0-4.3)
[2020-11-17 05:42] LABS: Basophils # (Auto) 0.1 K/mm3 (0.0-0.1); Basophils % (Auto) 0.5 % (0.0-1.8); Eosinophils # (Auto) 0.3 K/mm3 (0.0-0.4); Monocytes # (Auto) 1.1 K/mm3 (0.0-0.8)
[2020-11-17 05:54] LABS: Alanine Aminotransferase 32 units/L (7-56); Albumin 3.2 g/dL (3.9-5); BUN/Creatinine Ratio 12; Blood Urea Nitrogen 7 mg/dL (7-17); Calcium 8.7 mg/dL (8.4-10.2); Hemolysis Index 2
--- NOTE | 2020-11-17 07:02 | Ultrasound Report ---
OBSTETRIC ULTRASOUND INDICATION: Approximately 18 weeks with no c COMPARISON: No prior relevant imaging studies are available for comparison. TECHNIQUE: Transabdominal imaging was performed. FINDINGS: Single viable intrauterine is identified. lie: Transverse. Heart rate: 161 bpm. bladder, diaphragm, heart, stomach, cord and its insertion, kidneys, and included intracranial structures are unremarkable. Spine is not well visualized due to position. measurements are as follows: Biparietal diameter 4.5 cm, 19 weeks 4 days Head circumference 16.7 cm, 19 weeks 3 days Abdominal circumference 15.9 cm, 21 weeks 0 days Femur length 3.0 cm, 19 weeks 1 day Cervix is closed measuring 3-4 cm. There is a grade 0 anterior placenta. CONCLUSION: Single viable intrauterine currently in transverse position. No abnormalities are seen. Son ographic gestational age is 19 weeks, 6 days. Signer Name: Vik Cisneros MD Signed: 11/17/2020 6:57 AM Workstation Name: [id number]
[2020-11-17 07:47] VITALS: BP 142/72
== END 2020-11-17 07:46 | disposition home or self-care (01) ==
LOC: ED 02:42
DX: O23.42 Unspecified infection of urinary tract in pregnancy, second trimester (principal); I10 Essential (primary) hypertension; F41.9 Anxiety disorder, unspecified; F32.9 Major depressive disorder, single episode, unspecified; Z79.899 Other long term (current) drug therapy; Z88.2 Allergy status to sulfonamides; Z3A.19 19 weeks gestation of pregnancy
CPT/HCPCS: 36415; 76805; 80053; 81001; 85025; 87076; 87086; 87186